=== PATIENT | male | born 1955 | race Caucasian/White ===

== ENCOUNTER 2017-11-23 10:31 | Emergency (ER) | payer OTHER ==
[~2017-11-23 10:31] MED LIST: ASPI-1167 PO; ATOR40TA69 PO; AZIT-1 PO; FINA5TAB67 PO; FLUT16SP19 NS; HYDR-2966 PO; IBUP-56 PO; NAPR500T75 PO; QUIN40TA37 PO; TAMS0.4C70 PO
[2017-11-23 10:39] VITALS: BP 122/95
[2017-11-23] MEDS ORDERED: ASPIRIN 81 MG CHEW PO ONE (10:40)
--- NOTE | 2017-11-23 10:57 | EKG ---
FACILITY: [facility] [place] PATIENT NAME: JERAMY SILVERMAN : [id number] MR: [id number] V: [id number] EXAM DATE: ORDERING PHYSICIAN: SANDI AMBROCIO TECHNOLOGIST: JOHANN Test Reason : A fib Blood Pressure : / mmHG Vent. Rate : 128 BPM Atrial Rate : 133 BPM P-R Int : 000 ms QRS Dur : 094 ms QT Int : 312 ms P-R-T Axes : 000 -02 027 degrees QTc Int : 455 ms Atrial fibrillation with rapid ventricular response Abnormal ECG No previous ECGs available Confirmed by Shiva Cortez ([id number]) on 11/23/2017 4:54:00 PM Referred By: Confirmed By:Shiva Billings
--- NOTE | 2017-11-23 11:02 | ER Report ---
History and Physical Time Seen By MD: 10:59 Hx. of Stated Complaint: IRREGULAR HEART BEAT HPI/ROS CHIEF COMPLAINT: Irregular heartbeat HISTORY OF PRESENT ILLNESS: This is a 62-year-old male who presents to the emergency department for an irregular heartbeat. Patient states that over the last couple of months he has had intermittent feelings of an irregular heartbeat, he's also noted this on his fit bit. Patient states that about 20 days ago he was placed on on a Holter monitor from [place] [facility] to monitor for the irregular heartbeat. Patient states over the last 20 days he's been doing okay however this past Wednesday he noted that he had several episodes of irregular heartbeat that was noted on the monitor, did transmit some the data to [place] [facility], was noted that he was in A. fib. Patient states that he scheduled a follow-up appointment this coming . Today he's had 3 episodes and subsequently decided to come in for further evaluation. Patient was also encouraged to come in for evaluation from [place] [facility]. Patient denies chest pain or shortness of breath. Patient does have some slight fatigue. Patient also states the rates have been fluctuating from around the 40s up into the one-teens and 120s on his fit bit. Denies recent illnesses. No fevers or chills. No nausea or vomiting. REVIEW OF SYSTEMS: Constitutional: No fever, no chills. Eyes: No discharge. ENT: No sore throat. Cardiovascular: As above. Respiratory: No cough, no shortness of breath. Gastrointestinal: No abdominal pain, no vomiting. Genitourinary: No hematuria. Musculoskeletal: No back pain. Skin: No rashes. Neurological: No headache. Allergies: Coded Allergies: No Known Drug Allergies (Unverified , 11/23/17) verified by patient 11/01/17 Home Meds Active Scripts Metoprolol Tartrate (METOPROLOL TARTRATE) 25 Mg Tablet, 1 TAB PO BID, #6 TAB 0 Refills Prov:MERARY ESCOBEDO [facility]-BC 11/23/17 Hydrochlorothiazide (HYDROCHLOROTHIAZIDE) 25 Mg Tablet, 1 TAB PO QDAY for 90 Days, #90 TAB Prov:NAY WANG MD 10/22/17 Quinapril Hcl (QUINAPRIL HCL) 40 Mg Tablet, 1 TAB PO QDAY for 90 Days, #90 TAB 1 Refill Prov:CHAD MANNING DNP, [facility]- 07/26/17 Atorvastatin Calcium (ATORVASTATIN CALCIUM) 40 Mg Tablet, 1 TAB PO QDAY for 90 Days, #90 TAB 1 Refill Prov:CHAD MANNING DNP, [facility]- 07/26/17 Reported Medications Aspirin (Lo-Dose Aspirin EC) 81 Mg Tablet.dr, 1 TAB PO QDAY 01/22/17 Ibuprofen (IBUPROFEN) 200 Mg Tablet, 1-2 TAB PO Q6H PRN for PAIN/HEADACHE, TAB 06/24/16 Tamsulosin Hcl (TAMSULOSIN HCL) 0.4 Mg Cap.er.24h, 1 CAP PO QDAY, CAP 05/05/16 Finasteride (FINASTERIDE) 5 Mg Tablet, 1 TAB PO QDAY 05/05/16 Past Medical/Surgical History The patient has a past medical and surgical history of A. fib, hypertension, hypercholesterolemia, PSA elevated, arthritis, wears glasses, Achilles tendon repair, tonsillectomy and bunionectomy. Reviewed Nurses Notes: Yes Hx Smoking: No Smoking Status: Never Smoker Hx Substance Use Disorder: No Hx Alcohol Use: Yes Constitutional Vital Sign - Last 24 Hours 11/23/17 11/23/17 10:39 10:47 Temp 98.1 Pulse 138 Resp 14 B/P (MAP) 122/95 Pulse Ox 95 O2 Delivery Room Air O2 Flow Rate 2.0 Physical Exam General Appearance: The patient is alert, has no immediate need for airway protection and no signs of toxicity. Eyes: Pupils equal and round no pallor or injection. ENT, Mouth: Mucous membranes are moist. Respiratory: There are no retractions, lungs are clear to auscultation. Cardiovascular: Irregular rate and rhythm, no murmurs, clicks or rubs. Gastrointestinal: Abdomen is soft and non tender, no masses, bowel sounds normal. Neurological: Alert and oriented 4. Moving all extremities. Following all commands. No focal neuro deficits. Skin: Warm and dry, no rashes. Musculoskeletal: Neck is supple non tender. Extremities are nontender, nonswollen and have full range of motion. DIFFERENTIAL DIAGNOSIS: After history and physical exam differential diagnosis was considered for chest pain including but not limited to myocardial ischemia, pericarditis pulmonary embolus, chest wall pain, atrial fibrillation, atrial flutter, pleural inflammation and pulmonary infectious causes. Medical Decision Making Data Points Result Diagram: 11/23/17 1104 11/23/17 1104 Laboratory Hematology Test 11/23/17 11:04 Red Blood Count 5.42 M/uL (4.00-5.60) Mean Corpuscular Volume 91.2 fL (80.0-96.0) Mean Corpuscular Hemoglobin 31.0 pg (26.0-33.0) Mean Corpuscular Hemoglobin Concent 34.0 g/dL (32.0-36.0) Red Cell Distribution Width 14.1 % (11.5-14.5) Mean Platelet Volume 8.4 fL (7.2-11.1) Neutrophils (%) (Auto) 73.4 % (39.4-72.5) Lymphocytes (%) (Auto) 18.8 % (17.6-49.6) Monocytes (%) (Auto) 6.6 % (4.1-12.4) Eosinophils (%) (Auto) 0.5 % (0.4-6.7) Basophils (%) (Auto) 0.7 % (0.3-1.4) Nucleated RBC Relative Count (auto) 0.2 /100WBC Neutrophils # (Auto) 6.5 K/uL (2.0-7.4) Lymphocytes # (Auto) 1.7 K/uL (1.3-3.6) Monocytes # (Auto) 0.6 K/uL (0.3-1.0) Eosinophils # (Auto) 0.0 K/uL (0.0-0.5) Basophils # (Auto) 0.1 K/uL (0.0-0.1) Nucleated RBC Absolute Count (auto) 0.02 K/uL Prothrombin Time 13.1 seconds (12.0-14.4) Prothromb Time International Ratio 0.99 Activated Partial Thromboplast Time 27 seconds (23-35) Sodium Level 137 mmol/L (137-145) Potassium Level 4.1 mmol/L (3.5-5.0) Chloride Level 106 mmol/L (98-107) Carbon Dioxide Level 21 mmol/L (22-30) Blood Urea Nitrogen 15 mg/dl (9-21) Creatinine 0.80 mg/dl (0.66-1.25) Glomerular Filtration Rate Calc > 60.0 Random Glucose 99 mg/dl (75-110) Calcium Level 9.1 mg/dl (8.4-10.2) Magnesium Level 2.1 mg/dl (1.7-2.2) Total Bilirubin 0.9 mg/dl (0.2-1.3) Aspartate Amino Transf (AST/SGOT) 19 U/L (0-35) Alanine Aminotransferase (ALT/SGPT) 27 U/L (0-56) Alkaline Phosphatase 56 U/L (0-126) Troponin I < 0.012 ng/ml B-Type Natriuretic Peptide 281 pg/ml (0-100) Total Protein 6.3 g/dl (6.3-8.2) Albumin 3.8 g/dl (3.5-5.0) Chemistry Test 11/23/17 11:04 White Blood Count 8.8 k/uL (4.5-11.0) Red Blood Count 5.42 M/uL (4.00-5.60) Hemoglobin 16.8 g/dL (14.0-18.0) Hematocrit 49.5 % (42.0-52.0) Mean Corpuscular Volume 91.2 fL (80.0-96.0) Mean Corpuscular Hemoglobin 31.0 pg (26.0-33.0) Mean Corpuscular Hemoglobin Concent 34.0 g/dL (32.0-36.0) Red Cell Distribution Width 14.1 % (11.5-14.5) Platelet Count 268 K/uL (150-450) Mean Platelet Volume 8.4 fL (7.2-11.1) Neutrophils (%) (Auto) 73.4 % (39.4-72.5) Lymphocytes (%) (Auto) 18.8 % (17.6-49.6) Monocytes (%) (Auto) 6.6 % (4.1-12.4) Eosinophils (%) (Auto) 0.5 % (0.4-6.7) Basophils (%) (Auto) 0.7 % (0.3-1.4) Nucleated RBC Relative Count (auto) 0.2 /100WBC Neutrophils # (Auto) 6.5 K/uL (2.0-7.4) Lymphocytes # (Auto) 1.7 K/uL (1.3-3.6) Monocytes # (Auto) 0.6 K/uL (0.3-1.0) Eosinophils # (Auto) 0.0 K/uL (0.0-0.5) Basophils # (Auto) 0.1 K/uL (0.0-0.1) Nucleated RBC Absolute Count (auto) 0.02 K/uL Prothrombin Time 13.1 seconds (12.0-14.4) Prothromb Time International Ratio 0.99 Activated Partial Thromboplast Time 27 seconds (23-35) Glomerular Filtration Rate Calc > 60.0 Calcium Level 9.1 mg/dl (8.4-10.2) Magnesium Level 2.1 mg/dl (1.7-2.2) Total Bilirubin 0.9 mg/dl (0.2-1.3) Aspartate Amino Transf (AST/SGOT) 19 U/L (0-35) Alanine Aminotransferase (ALT/SGPT) 27 U/L (0-56) Alkaline Phosphatase 56 U/L (0-126) Troponin I < 0.012 ng/ml B-Type Natriuretic Peptide 281 pg/ml (0-100) Total Protein 6.3 g/dl (6.3-8.2) Albumin 3.8 g/dl (3.5-5.0) Coagulation Test 11/23/17 11:04 Prothrombin Time 13.1 seconds Prothromb Time International Ratio 0.99 Activated Partial Thromboplast Time 27 seconds EKG/Imaging EKG Interpretation 12 lead EKG: Time of EKG 1039. Rhythm: Atrial fibrillation, RVR, rate of 128. [place]: normal QRS: normal ST segments: No ST depression or elevation identified. No previous EKGs to compare to. 12 lead EKG: Time of EKG 1232. Rhythm: Sinus rhythm, ventricular rate 87 bpm, 1st degree AV block. [place]: normal QRS: normal ST segments: No ST depression or elevation identified. Following 20mg IV diltiazem. Imaging Exam type: CHEST PA AND LAT History: Chest Pain Comparison: None. Findings: The lungs are free of acute effusions, infiltrates or edema. Cardiac silhouette is normal in size. There is no evidence of a pneumothorax or pneumomediastinum. There are several mild compression fractures in the midthoracic spine. IMPRESSION: 1. No evidence of pulmonary consolidation or pulmonary edema Several mild compression fractures in the midthoracic spine Report Dictated By: Lissy Paris MD at 11/23/2017 11:32 AM Report E-Signed By: Lissy Paris MD at 11/23/2017 11:33 AM WSN:[email or web address] ED Course/Re-evaluation Clinical Indication for ER IV: IV Access ED Course The patient was admitted to room. A history of his were obtained. Differential diagnoses were considered. An IV was started. A CBC, CMP, troponin and BNP were obtained. Lab studies unremarkable. Negative troponin, BNP 281. Two-view chest x-ray negative for any acute cardiopulmonary process. I did review the laboratory studies and chest x-ray results with the patient. Patient also received 20 mg IV diltiazem while in the ER, patient's rate did slow and HE converted into a sinus rhythm with a first-degree AV block. I also consult with Dr. Nickolas Hays cardiology as noted below. The patient will start 325 mg daily aspirin, 25 mg by mouth metoprolol, and cut his hydrochlorothiazide in half. He will follow up on as scheduled. Encouraged to return to the ER for any other concerns or worsening symptoms. Patient expressed understanding and was discharged home. Chads score of 1. 11/23/2017 12:00:13 pm I did speak with Dr. Nickolas Hays cardiology, ob tained at him with the most current information regarding the patient's case, he suggested a daily 325 mg aspirin, 50 mg twice a day metoprolol and cut that one chlorothiazide and half. I did however send patient home with prescription for 25 mg twice a day metoprolol. Patient will follow up as scheduled on , return to ER for any other concerns or worsening symptoms. Decision to Disposition Date: Nov 23, 2017 Decision to Disposition Time: 12:15 Depart Departure Latest Vital Signs Vital Signs Date Time Temp Pulse Resp B/P (MAP) Pulse Ox O2 Delivery O2 Flow Rate FiO2 11/23/17 10:47 2.0 11/23/17 10:39 98.1 138 14 122/95 95 Room Air Impression: Primary Impression: Paroxysmal atrial fibrillation with RVR Condition: Improved Disposition: HOME OR SELF-CARE Referrals: CARDIOLOGY New Scripts Metoprolol Tartrate (METOPROLOL TARTRATE) 25 Mg Tablet 1 TAB PO BID, #6 TAB 0 Refills Prov: MERARY ESCOBEDO 11/23/17 Patient Instructions: A-fib (Atrial Fibrillation) (ED), Diltiazem (AFib) Additional Instructions: Keep your follow up appointment with [place] [facility] this . Stop taking the baby Aspirin and start taking a full 325mg aspirin daily. Take one half of your regular hydrochlorothiazide (12.5mg) until you follow up with your costumer assistant. Take 25mg Metoprolol every 12 hours until you follow up with your costumer assistant, be sure to monitor you blood pressure. Continue to drink plenty of water. Get plenty of rest. Keep the Holter monitor on until you follow up with cardiology. Return to the ED for any other concerns or worsening symptoms. MERARY ESCOBEDO-BC Nov 23, 2017 11:02
[2017-11-23 11:27] LABS: INR 0.99; PLATELET COUNT, AUTOMATED 268 K/uL (150-450)
[2017-11-23] MEDS ORDERED: DILTIAZEM 5 MG/ML 5ML IVPUSH IVP ONE (11:35)
--- NOTE | 2017-11-23 11:38 | RADIOLOGY IMAGING REPORT ---
FACILITY: [facility] PATIENT NAME: Martín Dickerson : 1955 MR: [id number] V: [id number] EXAM DATE: ORDERING PHYSICIAN: SANDI AMBROCIO TECHNOLOGIST: Location: [facility] Patient: Martín Dickerson : 1955 Visit/Account:[id number] Date of Sevice: 11/23/2017 Exam type: CHEST PA AND LAT History: Chest Pain Comparison: None. Findings: The lungs are free of acute effusions, infiltrates or edema. Cardiac silhouette is normal in size. There is no evidence of a pneumothorax or pneumomediastinum. There are several mild compression frac tures in the midthoracic spine. IMPRESSION: 1. No evidence of pulmonary consolidation or pulmonary edema Several mild compression fractures in the midthoracic spine Report Dictated By: Lissy Paris MD at 11/23/2017 11:32 AM Report E-Signed By: Lissy Paris MD at 11/23/2017 11:33 AM WSN:[email or web address]
[2017-11-23] MEDS ORDERED: METO25TA93 PO (12:17)
--- NOTE | 2017-11-23 12:37 | EKG ---
FACILITY: [facility] [place]IENT NAME: JERAMY SILVERMAN : [id number] MR: [id number] V: [id number] EXAM DATE: ORDERING PHYSICIAN: MERARY ESCOBEDO TECHNOLOGIST: JOHANN Hernandez Reason : REPEAT Blood Pressure : / mmHG Vent. Rate : 087 BPM Atrial Rate : 087 BPM P-R Int : 226 ms QRS Dur : 090 ms QT Int : 344 ms P-R-T Axes : 043 002 032 degrees QTc Int : 413 ms Atrial fibrillation Otherwise normal ECG When compared with ECG of 23-NOV-2017 10:39, No significant change was found Confirmed by Shiva Cortez ([id number]) on 11/23/2017 4:56:29 PM Referred By: Confirmed By:Shiva Billings
== END 2017-11-23 12:55 | disposition home or self-care (01) ==
LOC: ER 10:47
DX: I48.0 Paroxysmal atrial fibrillation (principal)
CPT/HCPCS: 36415; 71046; 83735; 83880; 84484; 85025; 85610; 85730; 93005; 96374; 99285; J3490; 82040; 82247; 82310; 82374; 82435; 82565; 82947; 84075; 84132; 84155; 84295; 84450; 84460; 84520

== ENCOUNTER → 2018-06-28 | Outpatient (CLI) | payer MEDICARE, OTHER ==
[~2018-06-28] MED LIST changes: +APIX5TAB PO; +ATOR-1 PO; +FLEC50TA16 PO; +HYDR12.556 PO; +METO25TA93 PO; +PNEU0.5D3 IM
--- NOTE | 2018-06-28 11:08 | RADIOLOGY IMAGING REPORT ---
FACILITY: [facility] PATIENT NAME: Martín Dickerson : 1955 MR: [id number] V: [id number] EXAM DATE: ORDERING PHYSICIAN: NAY WANG TECHNOLOGIST: Location: [facility] [place] Patient: Martín Dickerson : 1955 Visit/Account:[id number] Date of Sevice: 06/28/2018 EXAMINATION: Aorta ultrasound with duplex Doppler evaluation HISTORY: Medicare AAA screening COMPARISON: None. FINDINGS: Suprarenal abdominal aorta: 2.3 x 2.2 cm AP and transverse dimensions Superior infrarenal abdominal aorta: 1.9 x 2.5 cm AP and transverse dimensions Mid infrarenal abdominal aorta: Two x 1.8 cm AP and transverse dimensions Inferior infrarenal abdominal aorta: 1.9 x 2.2 cm AP and transverse dimensions Proximal common iliac artery diameter: Left 12 mm; right 12 mm Aorta wall: Small amount of calcified plaque identified Aorta and proximal common iliac artery are patent by duplex Doppler ultrasound. IMPRESSION: No evidence of an abdominal aortic aneurysm Small amount of calcified plaque is present within the aortic wall Report Dictated By: Lissy Paris MD at 06/28/2018 11:03 AM Report E-Signed By: Lissy Paris MD at 06/28/2018 11:04 AM WSN:[email or web address]
== END ==
LOC: US 01:00
PROVIDERS: ATTEND Internal Medicine
DX: Z00.00 Encounter for general adult medical examination without abnormal findings (principal); E78.5 Hyperlipidemia, unspecified; I10 Essential (primary) hypertension; M17.0 Bilateral primary osteoarthritis of knee; I48.0 Paroxysmal atrial fibrillation
CPT/HCPCS: 93979